=== PATIENT | male | born 1955 | race Caucasian/White ===

== ENCOUNTER 2016-11-29 07:22 | Day surgery (SDC) | payer OTHER ==
[~2016-11-29 07:22] MED LIST: ASAB PO; CARTIA XT240 MG/24 PO; CELEXA40 MG PO; CO Q-10200 MG PO; COQ10100 MG OR; ELIQUIS 2.5 MG2.5 MG PO; FISH OIL1200 MG PO; FISH-EPA1000 MG PO; ISOSORB DIN30 MG PO; LANTUS SC; LEXAPRO20 PO; LIPITOR80 MG PO; LOP25 PO; LOPID6 PO; NEUR600 PO; NITROSTAT0.4 MG SL; PERCOCET1 TA4 PO; PLAVIX PO; PRILO PO; Percocet 10/325 Ta PO; SYMBICORT 160/41 INH INH; T PO; ULTRAM50 PO
[2016-12-05] MEDS ORDERED: PCET PO (16:09)
[2016-12-05] MEDS ORDERED: ACET500CAP PO (16:09)
== END 2016-11-29 09:12 | disposition home or self-care (01) ==
LOC: SDC 07:22
PROVIDERS: Orthopaedic Surgery
PROC: 3E0S33Z Introduction of Anti-inflammatory into Epidural Space, Percutaneous Approach (ICD-10-PCS; principal; 2016-11-29 08:00)
DX: M54.16 Radiculopathy, lumbar region (principal); E11.9 Type 2 diabetes mellitus without complications; I10 Essential (primary) hypertension; E78.00 Pure hypercholesterolemia, unspecified; M19.90 Unspecified osteoarthritis, unspecified site; F41.9 Anxiety disorder, unspecified; F32.9 Major depressive disorder, single episode, unspecified; D64.9 Anemia, unspecified; I25.2 Old myocardial infarction; Z98.1 Arthrodesis status; Z90.49 Acquired absence of other specified parts of digestive tract
CPT/HCPCS: 82962; J1040; J2250; J3010; Q9967

== ENCOUNTER 2016-12-13 05:01 | Day surgery (SDC) | payer OTHER ==
[~2016-12-13 05:01] MED LIST changes: +ACET500CAP PO; +PCET PO
== END 2016-12-13 09:40 | disposition home or self-care (01) ==
LOC: SDC 05:01
PROVIDERS: Orthopaedic Surgery
PROC: 3E0S3BZ Introduction of Anesthetic Agent into Epidural Space, Percutaneous Approach (ICD-10-PCS; 2016-12-13)
PROC: 3E0S33Z Introduction of Anti-inflammatory into Epidural Space, Percutaneous Approach (ICD-10-PCS; principal; 2016-12-13 07:00)
DX: M54.16 Radiculopathy, lumbar region (principal); E11.9 Type 2 diabetes mellitus without complications; Z79.899 Other long term (current) drug therapy; Z79.82 Long term (current) use of aspirin; Z79.891 Long term (current) use of opiate analgesic; Z79.4 Long term (current) use of insulin; Z86.73 Personal history of transient ischemic attack (TIA), and cerebral infarction without residual deficits; Z90.49 Acquired absence of other specified parts of digestive tract; Z98.890 Other specified postprocedural states
CPT/HCPCS: 82962; J1040; J2250; J3010; Q9967